=== PATIENT | male | born 1985 | race Caucasian/White ===

== ENCOUNTER → 2023-01-29 | Outpatient (CLI) | payer OTHER | LOC: M PLAIMG 08:45 | PROVIDERS: ATTEND Family Medicine | DX: M54.16 Radiculopathy, lumbar region (principal) ==

== ENCOUNTER 2023-05-13 04:19 | Observation (INO) | payer OTHER ==
[~2023-05-13] VITALS: Ht 172.7 cm; Wt 72.5 kg
[2023-05-13 04:54] LABS: BASO # 0.1 10^3/uL (0.0-0.2); BASO % 0.3 % (0.0-1.0); EOS # 0.1 10^3/uL (0.0-0.5); EOS % 0.4 % (0.0-3.0); HEMATOCRIT 45.8 % (42.0-52.0); HEMOGLOBIN 16.4 g/dl (13.5-17.5); LYMPH # 1.6 10^3/uL (1.5-5.0); LYMPH % 8.7 % (24.0-44.0); MEAN CORPUSCULAR HEMOGLOBIN 30.5 pg (27.0-33.0); MEAN CORPUSCULAR HGB CONC 35.8 g/dl (32.0-36.5); MEAN CORPUSCULAR VOLUME 85.3 fl (80.0-96.0); MONO # 0.9 10^3/uL (0.0-0.8); MONO % 5.1 % (2.0-8.0); NEUTROPHILS # 15.6 10^3/uL (1.5-8.5); PLATELET COUNT, AUTOMATED 309 10^3/uL (150-450); RED BLOOD COUNT 5.37 10^6/uL (4.30-6.10); WHITE BLOOD COUNT 18.4 10^3/uL (4.0-10.0)
[2023-05-13 05:18] LABS: LIPASE 55 U/L (12-53)
[2023-05-13 05:19] LABS: CK-MB VALUE MASS < 1.0 NG/ML (<3.6)
[2023-05-13 05:20] LABS: CPK CREATINE PHOSPHOKINASE 118 U/L (46-171); MB/CK RELATIVE INDEX 0.84 (< OR =4)
[2023-05-13 05:21] LABS: ALBUMIN 4.5 G/DL (3.2-5.2); ALKALINE PHOSPHATASE 74 U/L (46-116); ALT/SGPT 18 U/L (7.0-40); AST/SGOT 14 U/L (<34); BILIRUBIN,DIRECT 0.2 MG/DL (<0.4); BILIRUBIN,TOTAL 0.8 MG/DL (0.3-1.2); BLOOD UREA NITROGEN 9 MG/DL (9-23); CALCIUM LEVEL 9.5 MG/DL (8.5-10.1); CARBON DIOXIDE LEVEL 31 MMOL/L (20-31); CHLORIDE LEVEL 101 MMOL/L (98-107); GLOMERULAR FILTRATION RATE > 60.0 (>60); GLUCOSE, FASTING 118 MG/DL (60-100); POTASSIUM SERUM 4.3 MMOL/L (3.5-5.1); SODIUM LEVEL 139 MMOL/L (136-145); TOTAL PROTEIN 7.3 G/DL (5.7-8.2)
[2023-05-13 05:27] LABS: RSV AMPLIFICATION NEGATIVE (NEGATIVE)
[2023-05-13] MEDS ORDERED: ISOVUE-370 76% 100ML VIAL As Ordered ONE (05:29)
[2023-05-13] MEDS: ONDANSETRON 4MG 2ML VIAL IV ONE (05:32)
[2023-05-13] MEDS: MORPHINE 4 MG/ML 1ML VIAL IV PRN (05:37)
[2023-05-13 06:34] LABS: CK-MB VALUE MASS < 1.0 NG/ML (<3.6)
[2023-05-13 06:35] LABS: CPK CREATINE PHOSPHOKINASE 100 U/L (46-171)
[2023-05-13] MEDS ORDERED: HOME MED LIST COMPLETE! XX SCH (07:30)
[2023-05-13] MEDS: PIPERACILLIN/TAZOBACTAM SOD 3.375 GM in D5W MINI-BAG PLUS 50 ML IV ONE (07:40)
[2023-05-13] MEDS ORDERED: oxyCODONE 5MG TAB PO PRN (08:35)
[2023-05-13] MEDS ORDERED: ONDANSETRON 4MG 2ML VIAL IV PRN (08:35)
[2023-05-13] MEDS ORDERED: MORPHINE 2 MG/ML 1ML VIAL IV PRN (08:35)
[2023-05-13] MEDS: KCL 20MEQ IN D5/0.45NS 1000ML 1,000 ML IV SCH (09:24)
[2023-05-13] MEDS ORDERED: PROMETHAZINE 25MG/ML 1ML VIAL IV PRN (09:35)
[2023-05-13] MEDS ORDERED: LR 1,000 ML IV SCH (09:35)
[2023-05-13] MEDS ORDERED: fentaNYL 100 MCG/2 ML INJECTION IV PRN ×2 (09:35→14:20)
[2023-05-13] MEDS ORDERED: HYDROMORPHONE HCL 0.5 MG/ 0.5 ML SYRINGE IV PRN ×2 (09:35→14:20)
[2023-05-13] MEDS ORDERED: propofoL 200 MG/20 ML VIAL As Ordered ONE (12:32)
[2023-05-13] MEDS ORDERED: KETOROLAC 60MG 2ML VIAL As Ordered ONE (12:32)
[2023-05-13] MEDS ORDERED: LIDOCAINE 2% 100MG/5ML SDV (FOR ANES.) As Ordered ONE (12:32)
[2023-05-13] MEDS ORDERED: ROCURONIUM BROMIDE 50MG/5ML VIAL As Ordered ONE (12:32)
[2023-05-13] MEDS ORDERED: ONDANSETRON 4MG 2ML VIAL As Ordered ONE (12:32)
[2023-05-13] MEDS ORDERED: dexmedeTOMIDine (4MCG/ML)200MCG/50ML BTL (PRECEDEX) As Ordered ONE (12:33)
[2023-05-13] MEDS ORDERED: SUGAMMADEX SODIUM 500 MG/5 ML VIAL (BRIDION) As Ordered ONE (12:35)
[2023-05-13] MEDS ORDERED: MIDAZOLAM INJ 2MG/2ML VIAL As Ordered ONE (12:37)
[2023-05-13] MEDS ORDERED: fentaNYL 100 MCG/2 ML INJECTION As Ordered ONE (12:37)
[2023-05-13] MEDS ORDERED: PIPERACILLIN/TAZOBACTAM SOD 3.375 GM in D5W MINI-BAG PLUS 50 ML IV SCH (14:00)
[2023-05-13] MEDS ORDERED: OXYC1TAB23 PO (15:12)
[2023-05-13 15:48] VITALS: BP 138/80; TEMP 97.7; O2SAT 98
== END 2023-05-13 15:48 | disposition home or self-care (01) ==
LOC: M ED 04:19 → M ED INP 04:20 → UNDOADMOB 08:32
PROVIDERS: ADMIT Surgery; ATTEND Surgery
DX: K35.33 Acute appendicitis with perforation, localized peritonitis, and gangrene, with abscess (principal); F43.10 Post-traumatic stress disorder, unspecified; M25.50 Pain in unspecified joint; R00.1 Bradycardia, unspecified; F17.290 Nicotine dependence, other tobacco product, uncomplicated
CPT/HCPCS: 44970; 71045; 74177; 80047; 80048; 80076; 82550; 82553; 83690; 84484; 85025; 87040; 87631; 88304; 93005; 96365; 96375; 96376; 99285; G0378; J0665; J1100; J1885; J2250; J2405; J2543; J3010; Q9967